=== PATIENT | female | born 1975 | race African-American/Black ===

== ENCOUNTER 2024-02-13 16:16 | Emergency (ER) | payer OTHER ==
[2024-02-13 16:30] VITALS: BP 152/89; PULSE 88; RESP 19; TEMP 98; BMI 41.1
[2024-02-13] MEDS: SODIUM CHLORIDE 1,000 ML IV STA (17:39)
[2024-02-13] MEDS: ONDANSETRON 4 MG/2 ML VIAL IVPUSH ONE (17:39)
[2024-02-13] MEDS ORDERED: ONDANSETRON 4 MG/2 ML VIAL ONE (17:40)
[2024-02-13 17:48] LABS: BASO % 1.3 % (0-2.0); EOS % 4.3 % (0-4.5); HEMATOCRIT 40.9 % (32.4-45.2); HEMOGLOBIN 13.7 GM/dL (10.7-15.3); LYMPH % 33.9 % (8-40); MCH 31.2 pg (25.7-33.7); MCHC 33.5 g/dl (32.0-36.0); MEAN CELL VOLUME 93.3 fl (80-96); MEAN PLT VOLUME 6.9 fl (7.5-11.1); MONO % 9.8 % (3.8-10.2); NEUT % 50.7 % (42.8-82.8); PH,URINE 6.5 (5.0-8.0); PLATELET COUNT 404 10^3/uL (134-434); RBC 4.38 M/mm3 (3.60-5.2); RDW 12.8 % (11.6-15.6); URINE APPEARANCE CLEAR; URINE BILIRUBIN NEGATIVE (NEGATIVE); URINE COLOR YELLOW; URINE GLUCOSE (UA) NEGATIVE (NEGATIVE); URINE KETONE TRACE (NEGATIVE); URINE LEUK ESTERASE NEGATIVE (NEGATIVE); URINE NITRITE NEGATIVE (NEGATIVE); URINE PROTEIN NEGATIVE (NEGATIVE); WHITE BLOOD COUNT 5.3 K/mm3 (4.0-10.0)
[2024-02-13 18:08] LABS: POTASSIUM 4.3 mmol/L (3.5-5.1)
[2024-02-13 18:10] LABS: ALBUMIN 3.9 g/dl (3.4-5.0)
[2024-02-13 18:11] LABS: BLOOD UREA NITROGEN 14.2 mg/dL (7-18)
[2024-02-13 18:14] LABS: CREATININE 0.9 mg/dL (0.55-1.3)
[2024-02-13 18:15] LABS: BILIRUBIN,TOTAL 0.7 mg/dL (0.2-1); TOT PROT 7.2 g/dl (6.4-8.2)
[2024-02-13] MEDS: METHOCARBAMOL 750 MG TABLET PO ONE (18:19)
[2024-02-13] MEDS: KETOROLAC TROMETHAMINE 15 MG/ML VIAL IVPUSH ONE (18:19)
[2024-02-13] MEDS ORDERED: KETOROLAC TROMETHAMINE 15 MG/ML VIAL ONE (18:20)
[2024-02-13] MEDS ORDERED: METHOCARBAMOL 500 MG TABLET ONE (18:20)
[2024-02-13 21:27] LABS: MAGNESIUM 1.9 mg/dL (1.8-2.4)
== END 2024-02-13 20:55 | disposition home or self-care (01) ==
LOC: JER 16:16
PROC: 3E033GC Introduction of Other Therapeutic Substance into Peripheral Vein, Percutaneous Approach (ICD-10-PCS; principal; 2024-02-13)
PROC: 3E0333Z Introduction of Anti-inflammatory into Peripheral Vein, Percutaneous Approach (ICD-10-PCS; 2024-02-13)
PROC: 3E0337Z Introduction of Electrolytic and Water Balance Substance into Peripheral Vein, Percutaneous Approach (ICD-10-PCS; 2024-02-13)
DX: R10.11 Right upper quadrant pain (principal); M54.9 Dorsalgia, unspecified; M62.838 Other muscle spasm
CPT/HCPCS: 36415; 76705-TC; 80053; 81003; 83690; 83735; 85025; 93005; 93010; 99285-25

== ENCOUNTER 2025-01-18 19:49 | Emergency (ER) | payer OTHER ==
[2025-01-18 19:54] VITALS: BP 112/68; PULSE 101; RESP 18; TEMP 98.6; BMI 41.1
[2025-01-18 22:38] LABS: HCV DIAGNOSTIC IN-HOUSE W/RFLX NON-REACTIVE (NONREACTIVE); HIV INTERPRETATION NEGATIVE (NEGATIVE)
== END 2025-01-18 20:53 | disposition home or self-care (01) ==
LOC: JER 19:49
DX: R05.1 Acute cough (principal); J34.89 Other specified disorders of nose and nasal sinuses; R00.0 Tachycardia, unspecified; R09.81 Nasal congestion; R50.9 Fever, unspecified
CPT/HCPCS: 36415; 86803; 87389; 99283-25